=== PATIENT | male | born 1990 | race Caucasian/White ===

== ENCOUNTER 2021-05-07 05:27 | Emergency (ER) | payer SELFPAY ==
[~2021-05-07] VITALS: Ht 180.3 cm; Wt 106.0 kg
--- NOTE | 2021-05-07 05:30 | PHYS DOC ---
General Adult HPI: HPI: ".. I got really bad dental pain...".. These two at the back..." Patient is a 31 year old male who presents with above hx and complaints of dental pain. Pain is localized in teeth 1 nd 2. Pt. has other areas of dental caries. No history immunosuppression. No history of travel. No history of ill contacts.. No trismus. Review of Systems: Review of Systems: Constitutional: Denies fever or chills Eyes: Denies change in visual acuity HENT: Denies nasal congestion or sore throat. Complaints of dental pain Respiratory: Denies cough or shortness of breath Cardiovascular: Denies chest pain or edema GI: Denies abdominal pain, nausea, vomiting, bloody stools or diarrhea : Denies dysuria Musculoskeletal: Denies back pain or joint pain Integument: Denies rash Neurologic: Denies headache, focal weakness or sensory changes Endocrine: Denies polyuria or polydipsia Lymphatic: Denies swollen glands Psychiatric: Denies depression or anxiety Family History: Family History: Noncontributory to presentation Current Medications: Current Meds: See nursing for home meds Allergies: Allergies: No known drug allergies Physical Exam: PE: Constitutional: Moderate acute distress, non-toxic appearance. [] HENT: Normocephalic, atraumatic, bilateral external ears normal, oropharynx moist, no oral exudates, nose normal. Teeth tender on percussion area of 1 and 2. No trismus. Eyes: PERRLA, EOMI, conjunctiva normal, no discharge. [] Neck: Normal range of motion, no tenderness, supple, no stridor. [] Cardiovascular:Heart rate regular rhythm, no murmur [] Lungs & Thorax: Bilateral breath sounds apex on auscultation [] Abdomen: Bowel sounds normal, soft, no tenderness, no masses, no pulsatile masses. [] Skin: Warm, dry, no erythema, no rash. Multiple tattoos. Back: No tenderness, no CVA tenderness. [] Extremities: No tenderness, no cyanosis, no clubbing, ROM intact, no edema. [] Neurologic: Alert and oriented X 3, normal motor function, normal sensory function, no focal deficits noted. [] Psychologic: Affect anxious, judgement normal, mood normal. [] EKG: EKG: [] Radiology/Procedures: Radiology/Procedures: [] Heart Score: C/O Chest Pain: N/A Risk Factors: Risk Factors: DM, Current or recent (<one month) smoker, HTN, HLP, family history of CAD, obesity. Risk Scores: Score 0 - 3: 2.5% MACE over next 6 weeks - Discharge Home Score 4 - 6: 20.3% MACE over next 6 weeks - Admit for Clinical Observation Score 7 - 10: 72.7% MACE over next 6 weeks - Early Invasive Strategies Course & Med Decision Making: Course & Med Decision Making Pertinent Labs and Imaging studies reviewed. (See chart for details) Must see a dentist. Take Tylenol and ibuprofen for pain. Take Keflex 500 mg 3 times a day. Must follow-up. Impression: 1. Dental pain Teeth 1 and 2 2. Dental caries [] Dragon Disclaimer: Dragroselyn Disclaimer: This electronic medical record was generated, in whole or in part, using a voice recognition dictation system. Departure Departure: Referrals: PCP,NO (PCP) Scripts Cephalexin (KEFLEX) 500 Mg Capsule 500 MG PO TID for dental infection. for 10 Days, #30 CAP Prov: COTY ASHFORD MD 05/07/21 Joe Disclaimer This chart was dictated in whole or in part using Voice Recognition software in a busy, high-work load, and often noisy Emergency Department environment. It may contain unintended and wholly unrecognized errors or omissions. COTY ASHFORD MD May 07, 2021 05:30
[2021-05-07] MEDS ORDERED: CEPH500C PO (05:57)
[2021-05-07 06:18] VITALS: BP 134/62
[2021-05-07] MEDS ORDERED: HYDROcodon/IBUPROFEN 7.5/200MG 1 TAB TABLET PO ONE (06:30)
[2021-05-07] MEDS ORDERED: CEPHALEXIN 250 MG CAPSULE PO ONE (06:30)
== END 2021-05-07 06:20 | disposition home or self-care (01) ==
LOC: ER 05:27
DX: K02.9 Dental caries, unspecified (principal)
CPT/HCPCS: 99283